=== PATIENT | male | born 1980 | race Caucasian/White ===

== ENCOUNTER 2018-09-05 07:50 | Inpatient (IN) | payer OTHER, SELFPAY ==
[2018-09-05] MEDS ORDERED: Adacel (T-DAP) 0.5 ML SYRINGE ONE (07:53)
[2018-09-05 08:06] LABS: #Lymphocytes 0.8 thou/uL (1.20-3.40); #Monocytes 0.7 thou/uL (0.11-0.59); %Basophils 0.1 % (0.0-1.0); %Eosinophils 0.3 % (0.0-10.0); %Lymphocytes 6.9 % (21.0-51.0); %Neutrophils 86.7 % (42.0-75.0); Hemoglobin 13.7 g/dL (14.0-18.0); Mean Corpuscular Hemoglobin 30.9 pg (27.0-31.0); Mean Corpuscular Volume 90.9 fL (78.0-98.0); Mean Platelet Volume 7.8 fL (7.4-10.4); Platelet Count 170 thou/uL (130-400); RBC Distribution Width 11.6 % (11.5-14.5); Red Blood Cell (RBC) Count 4.44 mill/uL (4.70-6.10); White Blood Cell (WBC) Count 11.5 thou/uL (4.8-10.8)
[2018-09-05 08:32] LABS: INR-International Normal Ratio 1.1; PTT 24.6 SEC (22.9-36.1); Prothrombin Time 14.1 SEC (12.0-14.7)
[2018-09-05 08:43] LABS: ALT (SGPT) 66 U/L (8-55); AST (SGOT) 62 U/L (5-34); Albumin 4.5 g/dL (3.5-5.0); Alcohol 128 mg/dL (Less than 10); Alkaline Phosphatase 57 U/L (40-150); Anion Gap 19 mmol/L (10-20); BUN (Urea Nitrogen) 17 mg/dL (8.9-20.6); Bilirubin, Total 0.5 mg/dL (0.2-1.2); Calc. Creatinine Clearance 0 mL/min (70-130); Calcium 9.5 mg/dL (7.8-10.44); Carbon Dioxide 20 mmol/L (22-29); Chloride 107 mmol/L (98-107); Estimated GFR-MDRD Greater than 90; Globulin 2.9 g/dL (2.4-3.5); Glucose 126 mg/dL (70-105); Lipase 23 U/L (8-78); Potassium 3.8 mmol/L (3.5-5.1); Protein, Total 7.4 g/dL (6.0-8.3); Sodium 142 mmol/L (136-145)
[2018-09-05] MEDS ORDERED: Lidocaine 1% w/Epinephrine 1:100K 20 ML VIAL ONE (08:50)
[2018-09-05] MEDS ORDERED: Lidocaine 1% (PF) 30 ML VIAL ONE (08:55)
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
--- NOTE | 2018-09-05 09:55 | CT ---
CHEST CT WITH CONTRAST ABDOMEN CT WITH CONTRAST PELVIC CT WITH COTNRAST LIMITED CT OF THE THORACIC AND CLS: FINDINGS: CHEST CT: No mediastinal mass, lymphadenopathy, or hematoma. Heart size is normal. No pericardial effusion. Thoracic and abdominal aorta have a normal caliber. No periaortic fat stranding. Trachea and centra l bronchi are patent. Dependent atelectatic changes. LEFT LUNG: No masses or consolidation. RIGHT LUNG: No masses or consolidation. No pneumothorax. ABDOMEN CT: Appropriate enhancement of the solid organs. No mesenteric mass, lymphadenopathy, free air, or free fluid. Limited evaluation of the alimentary canal. No evidence of bowel obstruction. Ileocecal junction is normal. Normal-caliber appendix.. Fecal material in a nondistended, nondilated colon. Occasional diverticulum. Symmetric enhancement of the kidneys. No obstructive uropathy. Nonobstructing calculi in the upper pole of the right kidney. Nonspecific calcifications in the portal confluence. CT PELVIS: Unremarkable urinary bladder. No pelvic mass, lymphadenopathy, free air, or free fluid. Bony thorax and bony pelvis appear to be intact. There is a nondisplaced fracture involving the supe rior body of the sternum (sagittal image #37, series 402 and axial image 27, series 2). CT OF THE THORACIC AND LUMBAR SPINE: No fractures. No malalignment. IMPRESSION: 1. No significant posttraumatic change in the chest, abdomen, or pelvis. 2. Nondisplaced fracture involving the sternum. 3. Results of the study discussed with Dr. Yunior Pagan 09/05/2018 at 8:35 a.m. CODE CR POS: OFF
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
[2018-09-05] MEDS ORDERED: Dextrose 5% in Water 1,000 ML IV PRN (10:10)
[2018-09-05] MEDS ORDERED: Dextrose 50% Abboject 50 ML SYRINGE SLOW IVP PRN (10:10)
[2018-09-05] MEDS ORDERED: Ondansetron ODT 4 MG TAB PO PRN (10:10)
[2018-09-05] MEDS ORDERED: Ondansetron PF 4 MG/2 ML Vial IVP PRN (10:10)
[2018-09-05] MEDS ORDERED: traMADol HCl 50 MG TAB PO PRN (10:15)
[2018-09-05] MEDS ORDERED: ISOVUE-370 76%-LOCM 1 ML ONE (10:55)
[2018-09-05 11:03] VITALS: BMI 27.0
[2018-09-05] MEDS ORDERED: Multivitamins, Adult 10 ML, Folic Acid 1 MG, Thiamine HCl 100 MG in Dextrose 5 %-0.45 %... IV SCH (12:00)
[2018-09-05] MEDS: traMADol HCl 50 MG TAB PO SCH ×5 (12:13→23:40)
[2018-09-05] MEDS: Acetaminophen 500 MG TAB PO SCH ×4 (12:14→23:37)
[2018-09-05 12:18] LABS: Lactic Acid 2.3 mmol/L (0.5-2.2)
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
[2018-09-06 04:16] LABS: #Eosinphils 0.1 thou/uL (0.0-0.7); #Lymphocytes 1.3 thou/uL (1.20-3.40); #Monocytes 0.4 thou/uL (0.11-0.59); #Neutrophils 4.2 thou/uL (1.40-6.50); %Basophils 0.1 % (0.0-1.0); %Lymphocytes 21.5 % (21.0-51.0); %Monocytes 7.1 % (0.0-10.0); %Neutrophils 70.2 % (42.0-75.0); Hemoglobin 11.8 g/dL (14.0-18.0); Mean Corpuscular HGB CONC 33.3 g/dL (32.0-36.0); Mean Corpuscular Hemoglobin 31.1 pg (27.0-31.0); Mean Corpuscular Volume 93.3 fL (78.0-98.0); Mean Platelet Volume 7.4 fL (7.4-10.4); Platelet Count 117 thou/uL (130-400); Platelet Morphology Comment Appears Decreased; RBC Distribution Width 11.6 % (11.5-14.5); Red Blood Cell (RBC) Count 3.79 mill/uL (4.70-6.10)
[2018-09-06 04:27] LABS: Magnesium 2.1 mg/dL (1.6-2.6); Phosphorus 3.2 mg/dL (2.3-4.7)
[2018-09-06 04:34] LABS: ALT (SGPT) 41 U/L (8-55); AST (SGOT) 33 U/L (5-34); Albumin 3.9 g/dL (3.5-5.0); Alkaline Phosphatase 46 U/L (40-150); Anion Gap 9 mmol/L (10-20); BUN (Urea Nitrogen) 10 mg/dL (8.9-20.6); Bilirubin, Total 1.7 mg/dL (0.2-1.2); Calc. Creatinine Clearance 142 mL/min (70-130); Carbon Dioxide 30 mmol/L (22-29); Chloride 106 mmol/L (98-107); Estimated GFR-MDRD Greater than 90; Globulin 2.2 g/dL (2.4-3.5); Glucose 104 mg/dL (70-105); Potassium 3.9 mmol/L (3.5-5.1); Protein, Total 6.1 g/dL (6.0-8.3); Sodium 141 mmol/L (136-145)
[2018-09-06] MEDS: Acetaminophen 500 MG TAB PO SCH (05:39)
[2018-09-06] MEDS: traMADol HCl 50 MG TAB PO SCH (05:44)
[2018-09-06] MEDS ORDERED: Sodium Chloride 0.65% Nasal 44 ML BOT EA NARE PRN (06:50)
[2018-09-06 08:23] VITALS: BP 144/72; TEMP 98
[2018-09-06] MEDS ORDERED: Polyethylene Glycol 3350 17 GM Packet PO SCH (09:00)
--- NOTE | 2018-09-06 09:02 | RAD ---
CHEST 1 VIEW: HISTORY: Sternal fracture. COMPARISON: None. FINDINGS: Normal cardiac silhouette. Lungs and pleural spaces are clear. No pneumothorax or osseous abnormali ties. IMPRESSION: No acute cardiopulmonary process. POS: OFF
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
== END 2018-09-06 12:06 | disposition home or self-care (01) | DRG 155 ==
LOC: ERS 07:50 → SURG A 10:59
PROVIDERS: ADMIT Surgery; ATTEND Surgery
DX: S02.2XXA Fracture of nasal bones, initial encounter for closed fracture (principal); S22.20XA Unspecified fracture of sternum, initial encounter for closed fracture; S01.81XA Laceration without foreign body of other part of head, initial encounter; F10.129 Alcohol abuse with intoxication, unspecified; Y90.6 Blood alcohol level of 120-199 mg/100 ml; S06.0X0A Concussion without loss of consciousness, initial encounter; F17.210 Nicotine dependence, cigarettes, uncomplicated; V89.2XXA Person injured in unspecified motor-vehicle accident, traffic, initial encounter
CPT/HCPCS: 12015; 36415; 70450; 70486; 71045; 71260; 72125; 74177; 80053; 80307; 83605; 83690; 83735; 84100; 85025; 85610; 85730; 90471; 90715; 94760; 96360; 96361; G0390; J2001; J3411; J7042; Q9966